=== PATIENT | male | born 1990 | race Caucasian/White ===

== ENCOUNTER 2018-11-23 10:12 | Emergency (ER) | payer SELFPAY ==
[2018-11-23 11:02] VITALS: BP 142/86; PULSE 94; TEMP 99; BMI 31.6
[2018-11-23] MEDS ORDERED: IBUPROFEN 400 MG TABLET (FP) PO ONE ×2 (11:20→11:27)
--- NOTE | 2018-11-23 11:26 | PDOC ---
History of Present Illness - General Chief Complaint: Ear Problem Stated Complaint: Ear Problem Time Seen by Provider: 11/23/18 11:15 History Source: Patient - History of Present Illness Initial Comments: 11/23/18 11:25 28-year-old male complaining of bilateral ear pain for the last 3 days.pain is worse with pulling on the ear. patient reports that few days ago he was cleaning ear with a q tip. denies recent travel, swimming, URI symptoms fever. no pmhx 11/23/18 11:27 Past History - Past Medical History Allergies/Adverse Reactions: Allergies Allergy/AdvReac Type Severity Reaction Status Date / Time No Known Allergies Allergy Verified 11/23/18 11:00 Home Medications: Ambulatory Orders Amox-Tr/K Cl [Augmentin - 875Mg Tablet] 1 tab PO BID #20 tablet 11/23/18 Ciprofloxacin HCl/Dexameth [Ciprodex Otic Suspension] 4 drop OU BID #1 bottle Ibuprofen 600 mg PO QID PRN #20 tablet 11/23/18 - Suicide/Smoking/Psychosocial Hx Smoking History: Never smoked Have you smoked in the past 12 months: No Information on smoking cessation initiated: No Hx Alcohol Use: No Drug/Substance Use Hx: No *Physical Exam - Vital Signs Last Vital Signs Temp Pulse Resp BP Pulse Ox 99.0 F 94 H 18 142/86 100 11/23/18 11:00 11/23/18 11:00 11/23/18 11:00 11/23/18 11:00 11/23/18 11:00 - Physical Exam General Appearance: Yes: Appropriately Dressed HEENT: positive: Pharyngeal Erythema, TM Bulging, TM Erythema, Other (ear canal b/.l erythema with irritation) Neck: positive: Lymphadenopathy (R), Lymphadenopathy (L) Integumentary: positive: Normal Color, Dry, Warm Neurologic: positive: Fully Oriented, Alert Medical Decision Making - Medical Decision Making 11/23/18 11:29 Otitis media/ externa P: ibuprofen augmentin *DC/Admit/Observation/Transfer Diagnosis at time of Disposition: Otitis media Qualifiers: Otitis media type: unspecified Chronicity: acute Qualified Code(s): H66.90 - Otitis media, unspecified, unspecified ear - Discharge Dispostion Disposition: HOME - Prescriptions Prescriptions: Amox-Tr/K Cl [Augmentin - 875Mg Tablet] 1 tab PO BID #20 tablet Ciprofloxacin HCl/Dexameth [Ciprodex Otic Suspension] 4 drop OU BID #1 bottle Ibuprofen 600 mg PO QID PRN #20 tablet PRN Reason: Pain - Referrals Referrals: Cristiano Amaro MD [Staff Physician] - Call tomorrow - Patient Instructions Printed Discharge Instructions: Middle Ear Infection Additional Instructions: Take ibuprofen every 6 hours as needed for pain. Take Augmentin twice a day for 10 days. Instill Ciprodex to both ears as prescribed. Follow-up with the ear nose throat doctor as soon as possible. Referral was given. Return to the emergency room for any worsening symptoms. - Post Discharge Activity Forms/Work/School Notes: Back to Work
[2018-11-23] MEDS ORDERED: AMOX TR/POT CLAV 875MG/125MG TABLETS (FP) PO ONE (11:27)
[2018-11-23] MEDS ORDERED: AMOX TR/POT CLAV 875MG/125MG TABLETS (FP) ONE (11:27)
== END 2018-11-23 12:00 | disposition home or self-care (01) ==
LOC: JERFT 10:12
DX: H66.93 Otitis media, unspecified, bilateral (principal); H60.503 Unspecified acute noninfective otitis externa, bilateral
CPT/HCPCS: 99282-25